=== PATIENT | female | born 1975 | race Caucasian/White ===

== ENCOUNTER → 2018-03-29 | Outpatient (CLI) | payer OTHER | END | disposition home or self-care (01) | LOC: CFH 12:16 | PROVIDERS: ATTEND Obstetrics & Gynecology Female Pelvic Medicine and Reconstructive Surgery | DX: Z12.31 Encounter for screening mammogram for malignant neoplasm of breast (principal) | CPT/HCPCS: 77067 ==

== ENCOUNTER → 2018-04-15 | Outpatient (CLI) | payer OTHER | END | disposition home or self-care (01) | LOC: CFH 13:08 | PROVIDERS: ATTEND Obstetrics & Gynecology Female Pelvic Medicine and Reconstructive Surgery | DX: N64.9 Disorder of breast, unspecified (principal) | CPT/HCPCS: 77065 ==